=== PATIENT | male | born 1975 | race Caucasian/White ===

== ENCOUNTER 2018-04-14 13:04 | Inpatient (IN) | payer OTHER ==
--- NOTE | 2018-04-14 13:35 | UC ---
Psychiatric Complaint HPI - HPI Summary HPI Summary: The pt is a 42 y/o male presenting to [facility] c/o panic attacks since 1 week ago. The sx are aggravated by recent stressors including loss of employment , relationship breakup and a court case. He notes paranoia, hallucinations, back pain, substance use relapse and night sweats but denies SI/HI at bedside. - History Of Current Complaint Chief Complaint: EDMentalHealth Stated Complaint: MHE Time Seen by Provider: 04/14/18 13:17 Hx Obtained From: Patient Onset/Duration: Lasting Weeks - 1 week Timing: Constant Character: Anxious Aggravating Factor(s): Recent Stress Associated Signs And Symptoms: Negative - SI/HI, Paranoid Behavior Recent Stressor(s): loss of employment , relationship breakup and a court case - Allergies/Home Medications Allergies/Adverse Reactions: Allergies Allergy/AdvReac Type Severity Reaction Status Date / Time No Known Allergies Allergy Verified 04/14/18 13:12 Home Medications: Home Medications Adderall TAB* 40 mg PO BID 04/14/18 [History Confirmed 04/14/18] Hydrochlorothiazide TAB* 25 mg PO DAILY 04/14/18 [History Confirmed 04/14/18] Seroquel 100 MG * 100 mg PO DAILY 04/14/18 [History Confirmed 04/14/18] Trazodone HCl 50 mg PO DAILY 04/14/18 [History Confirmed 04/14/18] PMH/Surg Hx/FS Hx/Imm Hx Previously Healthy: No Cardiovascular History: Hypertension Psychological History: Other - ADHD, Aicha, panic attacks, ADHD, paranoid behavior, visual hallucinations - Surgical History Surgical History: None - Family History Known Family History: Positive: Unknown - Social History Occupation: Unemployed Lives: Alone Alcohol Use: Daily Substance Use Type: Cocaine, Marijuana, Prescribed Review of Systems Constitutional: Other - Positive: substance use relapse Skin: Other - Positive: night sweats Musculoskeletal: Other: - Positive: back pain Psychological: Negative - SI/HI, Anxious, Other - Positive:paranoia, hallucinations, panic attacks All Other Systems Reviewed And Are Negative: Yes Physical Exam - Summary Physical Exam Summary: Appearance: Well appearing, no pain distress Skin: warm, dry, reflects adequate perfusion Head/face: normal Eyes: EOMI, HARSHAD ENT: normal Neck: supple, non-tender Respiratory: CTA, breath sounds present Cardiovascular: RRR, pulses symmetrical Abdomen: non-tender, soft Bowel: present Musculoskeletal: normal, strength/ROM intact Neuro: normal, sensory motor intact, anxious Triage Information Reviewed: Yes Vital Signs: Initial Vital Signs Temp 98.8 F 04/14/18 13:08 Pulse 93 04/14/18 13:08 Resp 17 04/14/18 13:08 BP 138/92 04/14/18 13:08 Pulse Ox 98 04/14/18 13:08 Vital Signs Reviewed: Yes Psych Complaint Course/Dx - Course Course Of Treatment: A 42 year-old M presents to the ED with a CC of panic attacks since 1 week ago. The sx are aggravated by recent stressors including loss of employment, relationship breakup and a court case. He notes paranoia, hallucinations, back pain, substance use relapse and night sweats but denies SI/ HI. A physical exam revealed anxiety. The pt was cleared for a MHE. At 19:00, the patient is still undergoing a MHE and will be signed out to Dr. Balbir Starks MD with a final Dx of depression. Pt is agreeable with this plan. Allergies noted. - Differential Dx/Diagnosis Differential Diagnosis/HQI/PQRI: Depression Discharge - Sign-Out/Discharge Documenting (check all that apply): Sign-Out Patient Signing out patient TO: Balbir Starks - 19:00 - Discharge Plan Referrals: Ozzie Luther DO [Primary Care Provider] - - Attestation Statements Document Initiated by Scribe: Yes Documenting Scribe: Berta Castillo Provider For Whom Scribe is Documenting (Include Credential): Dr. Juan Miguel Guevara MD Scribe Attestation: Berta Fish , scribed for Dr. Juan Miguel Guevara MD on 04/14/18 at 1848.
[2018-04-14 13:47] LABS: ABS Basophils 0.1 10^3/ul (0-0.2); ABS Eosinophils 0.2 10^3/ul (0-0.6); ABS Lymphocytes 2.5 10^3/ul (1.0-4.8); ABS Monocytes 0.7 10^3/ul (0-0.8); ABS Neutrophils 6.2 10^3/ul (1.5-7.7); ABS Nucleated RBC 0 10^3/ul; Eosinophil % 1.9 % (0-6); Hematocrit 45 % (42-52); Hemoglobin 15.8 g/dl (14.0-18.0); Lymphocyte % 25.5 % (25-47); Mean Corpuscular HGB Conc 35 g/dl (31-36); Mean Corpuscular Hemoglobin 33 pg (27-31); Mean Corpuscular Volume 93 fL (80-94); Mean Platelet Volume 6.6 um3 (7.4-10.4); Nucleated Red Blood Cells % 0.2; Platelet Count 333 10^3/ul (150-450); Red Blood Count 4.82 10^6/ul (4.00-5.40); Red Cell Distribution Width 13 % (10.5-15); White Blood Count 9.7 10^3/ul (3.5-10.8)
[2018-04-14 14:05] LABS: EGFR Non-African American 63.9 (>60)
[2018-04-14 14:29] LABS: Urine Appearance Clear; Urine Blood 2+ (Negative); Urine Color Yellow; Urine Ketones Negative (Negative); Urine Protein Negative (Negative); Urine Red Blood Cell 2+(6-10/hpf) (Absent); Urine Specific Gravity 1.013 (1.010-1.030); Urine Urobilinogen Negative (Negative); Urine White Blood Cell Trace(0-5/hpf) (Absent)
[2018-04-14] MEDS ORDERED: Nicotine Inhaler* 10 MG AMP INH ONE (17:46)
[2018-04-14] MEDS ORDERED: Mouth Piece, Nicotine* 1 EACH CARTRIDGE INH PRN (17:46)
--- NOTE | 2018-04-14 18:48 | ED ---
Psychiatric Complaint - HPI Summary HPI Summary: The pt is a 42 y/o male [facility] c/o panic attacks since 1 week ago. The sx are aggravated by recent stressors including loss of employment, relationship breakup and a court case. He notes paranoia, hallucinations, back pain, substance use relapse and night sweats but denies SI/HI at bedside. - History Of Current Complaint Chief Complaint: EDMentalHealth Time Seen by Provider: 04/14/18 13:17 Hx Obtained From: Patient Onset/Duration: Lasting Weeks - 1 week Timing: Constant Character: Anxious Associated Signs And Symptoms: Positive: Negative - SI/HI, Paranoid Behavior Recent Stressor(s): loss of employment , relationship breakup and a court case - Allergies/Home Medications Allergies/Adverse Reactions: Allergies Allergy/AdvReac Type Severity Reaction Status Date / Time No Known Allergies Allergy Verified 04/14/18 13:12 Home Medications: Home Medications Adderall TAB* 40 mg PO BID 04/14/18 [History Confirmed 04/14/18] Hydrochlorothiazide TAB* 25 mg PO DAILY 04/14/18 [History Confirmed 04/14/18] Seroquel 100 MG * 100 mg PO DAILY 04/14/18 [History Confirmed 04/14/18] Trazodone HCl 50 mg PO DAILY 04/14/18 [History Confirmed 04/14/18] PMH/Surg Hx/FS Hx/Imm Hx Previously Healthy: No Sensory History: Denies: Hx Deafness Opthamlomology History: Denies: Hx Legally Blind Psychiatric History: Reports: Other Psychiatric Issues/Disorders - ADHD, Aicha, panic attacks, ADHD, paranoid behavior, visual hallucinations Denies: Hx Eating Disorder, Hx of Violent Episodes Against Others - Cancer History Cancer Type, Location and Year: None - Surgical History Surgery Procedure, Year, and Place: None Infectious Disease History: No Infectious Disease History: Denies: Traveled Outside the [place] in Last 30 Days - Family History Known Family History: Positive: Unknown - Social History Occupation: Unemployed Lives: Alone Alcohol Use: Daily Alcohol Amount: for 3 days, hx alcohol abuse, has been weaning off Substance Use Type: Reports: Cocaine, Marijuana, Prescribed Substance Use Comment - Amount & Last Used: weed daily, prescribed 9 months, cocaine a few weeks ago Smoking Status (MU): Current Every Day Smoker Review of Systems Constitutional: Other - Positive: substance use relapse Positive: Other - Positive: night sweats Psychological: Other - Negative: SI/HI Positive: Anxious, Depressed, Other - panic attacks,paranoid behavior, visual hallucinations All Other Systems Reviewed And Are Negative: Yes Physical Exam - Summary Physical Exam Summary: Appearance: Well appearing, no pain distress Skin: warm, dry, reflects adequate perfusion Head/face: normal Eyes: EOMI, HARSHAD ENT: normal Neck: supple, non-tender Respiratory: CTA, breath sounds present Cardiovascular: RRR, pulses symmetrical Abdomen: non-tender, soft Bowel: present Musculoskeletal: normal, strength/ROM intact Neuro: normal, sensory motor intact, anxious Triage Information Reviewed: Yes Vital Signs On Initial Exam: Initial Vitals Temp Pulse Resp BP Pulse Ox 98.8 F 93 17 138/92 98 04/14/18 13:08 04/14/18 13:08 04/14/18 13:08 04/14/18 13:08 04/14/18 13:08 Vital Signs Reviewed: Yes Diagnostics - Vital Signs Vital Signs Temp Pulse Resp BP Pulse Ox 04/14/18 13:08 98.8 F 93 17 138/92 98 - Laboratory Lab Results: Lab Results 04/14/18 04/14/18 04/14/18 Range/Units 13:35 13:35 13:35 WBC 9.7 (3.5-10.8) 10^3/ul RBC 4.82 (4.00-5.40) 10^6/ul Hgb 15.8 (14.0-18.0) g/dl Hct 45 (42-52) % MCV 93 (80-94) fL MCH 33 H (27-31) pg MCHC 35 (31-36) g/dl RDW 13 (10.5-15) % Plt Count 333 (150-450) 10^3/ul MPV 6.6 L (7.4-10.4) um3 Neut % (Auto) 64.4 (38-83) % Lymph % (Auto) 25.5 (25-47) % Wilcox % (Auto) 7.4 H (0-7) % Eos % (Auto) 1.9 (0-6) % Baso % (Auto) 0.8 (0-2) % Absolute Neuts (auto) 6.2 (1.5-7.7) 10^3/ul Absolute Lymphs (auto) 2.5 (1.0-4.8) 10^3/ul Absolute Monos (auto) 0.7 (0-0.8) 10^3/ul Absolute Eos (auto) 0.2 (0-0.6) 10^3/ul Absolute Basos (auto) 0.1 (0-0.2) 10^3/ul Absolute Nucleated RBC 0 10^3/ul Nucleated RBC % 0.2 Sodium 137 (135-145) mmol/L Potassium 3.7 (3.5-5.0) mmol/L Chloride 103 (101-111) mmol/L Carbon Dioxide 28 (22-32) mmol/L Anion Gap 6 (2-11) mmol/L BUN 15 (6-24) mg/dL Creatinine 1.24 H (0.67-1.17) mg/dL Est GFR ( Amer) 77.4 (>60) Est GFR (Non-Af Amer) 63.9 (>60) BUN/Creatinine Ratio 12.1 (8-20) Glucose 111 H (70-100) mg/dL Calcium 9.8 (8.6-10.3) mg/dL Total Bilirubin 0.90 (0.2-1.0) mg/dL AST 28 (13-39) U/L ALT 29 (7-52) U/L Alkaline Phosphatase 52 (34-104) U/L Total Protein 7.2 (6.4-8.9) g/dL Albumin 4.2 (3.2-5.2) g/dL Globulin 3.0 (2-4) g/dL Albumin/Globulin Ratio 1.4 (1-3) TSH 1.21 (0.34-5.60) mcIU/mL Urine Color Urine Appearance Urine pH (5-9) Ur Specific [place] (1.010-1.030) Urine Protein (Negative) Urine Ketones (Negative) Urine Blood (Negative) Urine Nitrate (Negative) Urine Bilirubin (Negative) Urine Urobilinogen (Negative) Ur Leukocyte Esterase (Negative) Urine WBC (Auto) (Absent) Urine RBC (Auto) (Absent) Ur Squamous Epith Cells (Absent) Urine Bacteria (Absent) Urine Glucose (Negative) Salicylates < 2.50 (<30) mg/dL Urine Opiates Screen None detected (None Detect) Acetaminophen < 15 mcg/mL Ur Barbiturates Screen None detected (None Detect) Ur Phencyclidine Scrn None detected (None Detect) Ur Amphetamines Screen Presumptive positive A (None Detect) U Benzodiazepines Scrn None detected (None Detect) Urine Cocaine Screen None detected (None Detect) U Cannabinoids Screen None detected (None Detect) Serum Alcohol < 10 (<10) mg/dL 04/14/18 Range/Units 14:16 WBC (3.5-10.8) 10^3/ul RBC (4.00-5.40) 10^6/ul Hgb (14.0-18.0) g/dl Hct (42-52) % MCV (80-94) fL MCH (27-31) pg MCHC (31-36) g/dl RDW (10.5-15) % Plt Count (150-450) 10^3/ul MPV (7.4-10.4) um3 Neut % (Auto) (38-83) % Lymph % (Auto) (25-47) % Wilcox % (Auto) (0-7) % Eos % (Auto) (0-6) % Baso % (Auto) (0-2) % Absolute Neuts (auto) (1.5-7.7) 10^3/ul Absolute Lymphs (auto) (1.0-4.8) 10^3/ul Absolute Monos (auto) (0-0.8) 10^3/ul Absolute Eos (auto) (0-0.6) 10^3/ul Absolute Basos (auto) (0-0.2) 10^3/ul Absolute Nucleated RBC 10^3/ul Nucleated RBC % Sodium (135-145) mmol/L Potassium (3.5-5.0) mmol/L Chloride (101-111) mmol/L Carbon Dioxide (22-32) mmol/L Anion Gap (2-11) mmol/L BUN (6-24) mg/dL Creatinine (0.67-1.17) mg/dL Est GFR ( Amer) (>60) Est GFR (Non-Af Amer) (>60) BUN/Creatinine Ratio (8-20) Glucose (70-100) mg/dL Calcium (8.6-10.3) mg/dL Total Bilirubin (0.2-1.0) mg/dL AST (13-39) U/L ALT (7-52) U/L Alkaline Phosphatase (34-104) U/L Total Protein (6.4-8.9) g/dL Albumin (3.2-5.2) g/dL Globulin (2-4) g/dL Albumin/Globulin Ratio (1-3) TSH (0.34-5.60) mcIU/mL Urine Color Yellow Urine Appearance Clear Urine pH 6.0 (5-9) Ur Specific [place] 1.013 (1.010-1.030) Urine Protein Negative (Negative) Urine Ketones Negative (Negative) Urine Blood 2+ A (Negative) Urine Nitrate Negative (Negative) Urine Bilirubin Negative (Negative) Urine Urobilinogen Negative (Negative) Ur Leukocyte Esterase Negative (Negative) Urine WBC (Auto) Trace(0-5/hpf) (Absent) Urine RBC (Auto) 2+(6-10/hpf) A (Absent) Ur Squamous Epith Cells Present A (Absent) Urine Bacteria Absent (Absent) Urine Glucose Negative (Negative) Salicylates (<30) mg/dL Urine Opiates Screen (None Detect) Acetaminophen mcg/mL Ur Barbiturates Screen (None Detect) Ur Phencyclidine Scrn (None Detect) Ur Amphetamines Screen (None Detect) U Benzodiazepines Scrn (None Detect) Urine Cocaine Screen (None Detect) U Cannabinoids Screen (None Detect) Serum Alcohol (<10) mg/dL Result Diagrams: 04/14/18 13:35 04/14/18 13:35 Lab Statement: Any lab studies that have been ordered have been reviewed, and results considered in the medical decision making process. Course/Dx - Course Course Of Treatment: A 42 year-old M presents to the ED with a CC of panic attacks since 1 week ago. The sx are aggravated by recent stressors including loss of employment, relationship breakup and a court case. He notes paranoia, hallucinations, back pain, substance use relapse and night sweats but denies SI/ HI. A physical exam revealed anxiety. The pt was cleared for a MHE. The pt will be admitted to Dr. Maria Elena Teran MD with a final Dx of depression. Pt is agreeable with this plan. Allergies noted. - Differential Dx/Clinical Impression Differential Diagnosis/HQI/PQRI: Positive: Depression Discharge - Sign-Out/Discharge Documenting (check all that apply): Patient Departure - Admit - Discharge Plan Condition: Stable Disposition: ADMITTED TO [facility] Referrals: Ozzie Luther, [Primary Care Provider] - - Attestation Statements Document Initiated by Scribe: Yes Documenting Scribe: Berta Castillo Provider For Whom Scribe is Documenting (Include Credential): Dr. Juan Miguel Guevara MD Scribe Attestation: Berta Fish , scribed for Dr. Juan Miguel Guevara MD on 04/14/18 at 1859.
[2018-04-14] MEDS ORDERED: Al Hydrox/Mg Hydrox/Simet LIQ* 30 ML UDC PO PRN (22:28)
[2018-04-14] MEDS: Acetaminophen TAB* 325 MG PO PRN (22:40)
[2018-04-14] MEDS: QUEtiapine TAB* 100 MG PO SCH (22:40)
[2018-04-14] MEDS: traZODone TAB* 50 MG TAB PO SCH (22:41)
[2018-04-14] MEDS ORDERED: Mouth Piece, Nicotine* 1 EACH CARTRIDGE INH ONE (23:00)
[2018-04-15] MEDS: Acetaminophen TAB* 325 MG PO PRN ×2 (06:21→21:13)
[2018-04-15] MEDS: Vitamin THERAPEUTIC TAB PO SCH (09:13)
[2018-04-15] MEDS: Nicotine Inhaler* 10 MG AMP INH PRN ×2 (09:13→18:22)
[2018-04-15] MEDS ORDERED: Naltrexone INJ 380 MG IM ONE (17:46)
[2018-04-15] MEDS: Nicotine GUM* 2 MG PO PRN (18:22)
[2018-04-15] MEDS: Divalproex DR TAB(*) 500 MG PO SCH (19:19)
[2018-04-15] MEDS: traZODone TAB* 50 MG TAB PO SCH (21:13)
[2018-04-15] MEDS: QUEtiapine TAB* 100 MG PO SCH (21:14)
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
[2018-04-16] MEDS ORDERED: hydrOXYzine HCL TAB* 25 MG ONE (05:15)
[2018-04-16] MEDS: Vitamin THERAPEUTIC TAB PO SCH (08:21)
[2018-04-16] MEDS: Divalproex DR TAB(*) 500 MG PO SCH (08:21)
[2018-04-16] MEDS: Nicotine Inhaler* 10 MG AMP INH PRN ×4 (09:30→18:36)
[2018-04-16] MEDS: Nicotine GUM* 2 MG PO PRN ×3 (13:36→18:37)
[2018-04-16] MEDS: hydrOXYzine HCL TAB* 25 MG PO PRN (15:52)
--- NOTE | 2018-04-16 19:07 | PN ---
Subjective - Subjective Date of Service: 04/16/18 Service Type: 48007 Hosp care 15 min low complexity Subjective: Latosha has been anxious and restless all day today. Taking meds( Depakote ) and asking for anti-anxiety meds. Hydroxyzine prescribes. Denies SI, HI hallucinations or delusions. Mood symptoms improved. Objective - Appearance Appearance: Well Developed/Nourished Dysmorphic Features: No Hygiene: Normal Grooming: Fairly Well Kept - Behavior Psychomotor Activities: Normal Exhibits Abnormal Movement: No - Attitude and Relatedness Attitude and Relatedness: Appropriate Eye Contact: Good - Speech Quality: Unpressured Latencies: Normal Quantity: Appropriate - Mood Patient's Decription of Mood: "Anxious" - Affect Observed Affect: Fair Affect Consistent with: Dysphoria - Thought Process Patient's Thought Process: Coherent, Goal Directed Thought Content: No Passive Wish, No Suicidal Planning, No Homicidal Ideation, No Paranoid Ideation - Sensorium Experiencing Hallucinations: No, Sensorium is Clear Type of Hallucinations: Visual: No, Auditory: No, Command: No - Level of Consciousness Level of Consciousness: Alert Orientation: Yes Intact, Yes Orientated to Time, Yes Orientated to Place, Yes Orientated to Person - Impulse Control Impulse Control: Intact - Insight and Judgement Insight and Judgement: Poor - Group Participation Particating in Group Activities: No - Medication Management Medication Management Adherence: Yes Assessment - Assessment Merits Inpatient Hospitalization: For Immediate Safety, For Stabilization, For Ongoing Evaluation, Pending Safe DC Plan Clinical Impression: Still symptomatic and will need time for stabilization. Plan - Plan Treatment Plan: Name: LATOSHA THOMAS Birthdate: 1975 [id number] Continued Medication Management: Continue Outpt Medication Medications: Current Medications Acetaminophen (Tylenol Tab*) 650 mg PO Q4H PRN PRN Reason: PAIN or TEMP > 101 F Last Admin: 04/15/18 21:13 Dose: 650 mg Al Hydrox/Mg Hydrox/Simethicone (Maalox Plus*) 30 ml PO Q4H PRN PRN Reason: INDIGESTION Divalproex Sodium (Depakote Dr Tab(*)) 500 mg PO DAILY [facility] Last Admin: 04/16/18 08:21 Dose: 500 mg Hydroxyzine HCl (Atarax Tab*) 25 mg PO Q4H PRN PRN Reason: ANXIETY Last Admin: 04/16/18 15:52 Dose: 25 mg Multivitamins (Theragran Tab*) 1 tab PO DAILY [place] Last Admin: 04/16/18 08:21 Dose: 1 tab Nicotine (Nicotine Inhaler*) 10 mg INH Q2H PRN PRN Reason: CRAVING Last Admin: 04/16/18 18:36 Dose: 10 mg Nicotine Polacrilex (Nicotine Gum*) 2 mg PO Q2H PRN PRN Reason: CRAVING Last Admin: 04/16/18 18:37 Dose: 2 mg Quetiapine Fumarate (Seroquel Tab*) 100 mg PO BEDTIME [facility] Last Admin: 04/15/18 21:14 Dose: 100 mg Trazodone HCl (Desyrel Tab*) 50 mg PO BEDTIME [place] Last Admin: 04/15/18 21:13 Dose: 50 mg - Discharge Plan Discharge Plan: Drug/Alcohol Rehab
[2018-04-16] MEDS: QUEtiapine TAB* 100 MG PO SCH (20:42)
[2018-04-16] MEDS: traZODone TAB* 50 MG TAB PO SCH (20:42)
[2018-04-17] MEDS: Nicotine Inhaler* 10 MG AMP INH PRN ×5 (07:39→21:18)
[2018-04-17] MEDS: Acetaminophen TAB* 325 MG PO PRN ×3 (07:39→22:16)
[2018-04-17] MEDS: Nicotine GUM* 2 MG PO PRN ×2 (07:41→10:01)
[2018-04-17] MEDS: Divalproex DR TAB(*) 500 MG PO SCH (08:06)
[2018-04-17] MEDS: Vitamin THERAPEUTIC TAB PO SCH (08:06)
[2018-04-17] MEDS: hydrOXYzine HCL TAB* 25 MG PO PRN ×2 (11:13→19:12)
[2018-04-17] MEDS: Nicotine PATCH 21 MG/24 HR* PATCH TRANSDERM SCH (13:23)
[2018-04-17] MEDS ORDERED: QUEtiapine TAB* 25 MG PO PRN (15:40)
[2018-04-17] MEDS ORDERED: Divalproex DR TAB(*) 250 MG PO ONE (15:43)
--- NOTE | 2018-04-17 15:48 | PN ---
Subjective - Subjective Date of Service: 04/17/18 Service Type: 18164 Hosp care 25 min moderate complexity Subjective: Patient was seen by self, discussed with treatment team, met with his parents as per his consent, chart was reviewed. Patient has been compliant with his medications, no reported side effects. Patient reports his ongoing struggle with his ongoing irritability/anger, continues to be easily distractible, disorganized in his thoughts and behaviors, disturbance in sleeping, anxious. Patient eating has been fair. Patient has been cooperative with staff. Patient behavior has been in control. Patient mood was very anxious and dysphoric with racing thoughts. Patient has been reporting no suicidal or homicidal ideation. No psychotic symptoms of delusions or hallucinations at this time but patient did report having hallucinations and delusions before coming to the hospital. But patient was reportedly abusing stimulant and alcohol. Objective - Appearance Appearance: Healthy Appearing Dysmorphic Features: No Hygiene: Normal Grooming: Fairly Well Kept - Behavior Psychomotor Activities: Abnormal-Increased Exhibits Abnormal Movement: No - Attitude and Relatedness Attitude and Relatedness: Cooperative Eye Contact: Fair - Speech Quality: Unpressured Latencies: Long - Mood Patient's Decription of Mood: "Anxious" - Affect Observed Affect: Tense Affect Consistent with: Dysphoria - anxious - Thought Process Patient's Thought Process: Goal Directed, Disorganized - mostly Thought Content: No Passive Wish, No Suicidal Planning, No Homicidal Ideation, No Paranoid Ideation - Sensorium Experiencing Hallucinations: No, Sensorium is Clear Type of Hallucinations: Visual: No, Auditory: No, Command: No - Level of Consciousness Level of Consciousness: Alert Orientation: Yes Intact, Yes Orientated to Time, Yes Orientated to Place, Yes Orientated to Person - Impulse Control Impulse Control: Intact - Insight and Judgement Insight and Judgement: Fair - Group Participation Particating in Group Activities: Yes - Medication Management Medication Management Adherence: Yes Assessment - Assessment Merits Inpatient Hospitalization: For Immediate Safety, For Stabilization, For Discharge Planning Inpatient DSM-V Dx: F39 Clinical Impression: This 42-year-old male with no prior history of hospitalization and possibly a misdiagnosis of ADHD and treatment with stimulants by primary care physician. His symptoms of psychosis appears to have a relationship with stimulant and almost disappeared after holding the medication overnight. He also has an extensive history of alcohol and opiate dependance and the alcohol dependence is current. Plan - Plan Treatment Plan: Name: LATOSHA THOMAS Birthdate: 1975 [id number] - Patient continues to be hospitalized due to recent psychotic symptoms, stimulant and alcohol abuse and mood instability. - Patient's medications were adjusted after informed consent with discontinuation of Seroquel, increment in Depakote to 750 mg BID to help with mood stability, Clonidine was started to help with ADHD related symptoms and Klonopin 0.5 mg BID was started to help with anxiety and alcohol related withdrawal symptoms.. - Patient will be monitored for improvement and side effects. Risk and benefits were discussed. - Patient was encouraged to continue his participation in the milieu, group and individual therapy. Medications: Current Medications Acetaminophen (Tylenol Tab*) 650 mg PO Q4H PRN PRN Reason: PAIN or TEMP > 101 F Last Admin: 04/17/18 13:22 Dose: 650 mg Al Hydrox/Mg Hydrox/Simethicone (Maalox Plus*) 30 ml PO Q4H PRN PRN Reason: INDIGESTION Clonidine HCl (Catapres Tab*) 0.1 mg PO BID COUNTS INCLUDE 234 BEDS AT THE [facility] Divalproex Sodium (Depakote Dr Tab(*)) 750 mg PO BID [place] Divalproex Sodium (Depakote Dr Tab(*)) 250 mg PO ONCE ONE Stop: 04/17/18 15:44 Hydroxyzine HCl (Atarax Tab*) 25 mg PO Q4H PRN PRN Reason: ANXIETY Last Admin: 04/17/18 11:13 Dose: 25 mg Multivitamins (Theragran Tab*) 1 tab PO DAILY COUNTS INCLUDE 234 BEDS AT THE [facility] Last Admin: 04/17/18 08:06 Dose: 1 tab Nicotine (Nicotine Inhaler*) 10 mg INH Q2H PRN PRN Reason: CRAVING Last Admin: 04/17/18 13:23 Dose: 10 mg Nicotine (Nicotine Patch 21 Mg/24 Hr*) 1 patch TRANSDERM DAILY COUNTS INCLUDE 234 BEDS AT THE [facility] Last Admin: 04/17/18 13:23 Dose: 1 patch Pharmacy Profile Note (Nicotine Patch Removal Note*) 1 note FOLLOW UP 2100 COUNTS INCLUDE 234 BEDS AT THE [facility] Quetiapine Fumarate (Seroquel Tab*) 50 mg PO BEDTIME PRN PRN Reason: AGITATION/INSOMNIA
[2018-04-17] MEDS: cloNIDine TAB* 0.1 MG PO SCH ×2 (16:16→21:14)
[2018-04-17] MEDS: clonazePAM TAB(*) 0.5 MG PO SCH ×2 (16:16→21:14)
[2018-04-17] MEDS ORDERED: Nicotine Patch Removal NOTE FOLLOW UP SCH (21:00)
[2018-04-17] MEDS: Divalproex DR TAB(*) 250 MG PO SCH (21:15)
[2018-04-17] MEDS ORDERED: cloNIDine TAB* 0.1 MG ONE (21:18)
[2018-04-18] MEDS: Acetaminophen TAB* 325 MG PO PRN (06:46)
[2018-04-18] MEDS: Nicotine Inhaler* 10 MG AMP INH PRN ×4 (06:48→18:53)
[2018-04-18] MEDS: Nicotine PATCH 21 MG/24 HR* PATCH TRANSDERM SCH (08:11)
[2018-04-18] MEDS: Divalproex DR TAB(*) 250 MG PO SCH ×2 (08:15→20:10)
[2018-04-18] MEDS: clonazePAM TAB(*) 0.5 MG PO SCH ×2 (08:15→20:10)
[2018-04-18] MEDS: cloNIDine TAB* 0.1 MG PO SCH ×2 (08:15→20:10)
[2018-04-18] MEDS: Vitamin THERAPEUTIC TAB PO SCH (08:15)
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
--- NOTE | 2018-04-18 12:08 | PN ---
[facility]: Group Therapy Note - Service Type Service Type: 31555 Group Psychotherapy - Cognitive Behavioral Group Therapy ( CBT):Patient was attentive and participatory in CBT programming this morning, and remained in good behavioral control. Patient expressed positive insights regarding relevant treatment interventions and goals.
[2018-04-18] MEDS: hydrOXYzine HCL TAB* 25 MG PO PRN ×2 (12:21→18:47)
[2018-04-18] MEDS: Ibuprofen TAB* 400 MG PO PRN (13:04)
[2018-04-18] MEDS: Nicotine GUM* 2 MG PO PRN ×3 (13:04→18:47)
--- NOTE | 2018-04-18 16:02 | PN ---
[facility]: Group Therapy Note - Service Type Service Type: 03168 Group Psychotherapy - Medication Education Group: Patient was attentive and participatory in group, and remained in good behavioral control. Patient expressed positive insights regarding relevant treatment interventions. Patient stated understanding of material discussed and had appropriate questions.
[2018-04-19] MEDS: cloNIDine TAB* 0.1 MG PO SCH ×2 (08:26→20:15)
[2018-04-19] MEDS: Divalproex DR TAB(*) 250 MG PO SCH ×2 (08:26→20:15)
[2018-04-19] MEDS: Vitamin THERAPEUTIC TAB PO SCH (08:26)
[2018-04-19] MEDS: Nicotine Inhaler* 10 MG AMP INH PRN ×2 (08:27→12:48)
[2018-04-19] MEDS: Nicotine GUM* 2 MG PO PRN ×4 (08:28→17:51)
[2018-04-19] MEDS ORDERED: clonazePAM TAB(*) 0.5 MG PO SCH (09:00)
[2018-04-19] MEDS: Acetaminophen TAB* 325 MG PO PRN (12:46)
--- NOTE | 2018-04-19 12:46 | PN ---
Subjective - Subjective Date of Service: 04/19/18 Service Type: 03192 Hosp care 15 min low complexity Subjective: Patient was seen by self, discussed with treatment team, chart was reviewed. Patient has been compliant with his medications, no reported side effects. Patient reports feeling better with his mood, more organized in his thoughts and behaviors, improvement in sleep, reduction in racing thoughts, anxiety improving. Patient eating has been fair. Patient has been cooperative with staff. Patient behavior has been in control. Patient has been reporting no suicidal or homicidal ideation. No psychotic symptoms of delusions or hallucinations. Patient understand his struggle with substance and alcohol, is at high risk of relapse, willing to follow up with drug / alcohol treatment program. Patient already received Vivitrol during this hospitalization and is willing to continue with it outpatient. Objective - Appearance Appearance: Healthy Appearing Dysmorphic Features: No Hygiene: Normal Grooming: Fairly Well Kept - Behavior Psychomotor Activities: Normal Exhibits Abnormal Movement: No - Attitude and Relatedness Attitude and Relatedness: Cooperative - more Eye Contact: Fair - Speech Quality: Unpressured Latencies: Normal Quantity: Appropriate - Mood Patient's Decription of Mood: "Okay" - Affect Observed Affect: Constricted Affect Consistent with: Dysphoria - Thought Process Thought Content: No Passive Wish, No Suicidal Planning, No Homicidal Ideation, No Paranoid Ideation - Sensorium Experiencing Hallucinations: No, Sensorium is Clear Type of Hallucinations: Visual: No, Auditory: No, Command: No - Level of Consciousness Level of Consciousness: Alert Orientation: Yes Intact, Yes Orientated to Time, Yes Orientated to Place, Yes Orientated to Person - Impulse Control Impulse Control: Intact - Insight and Judgement Insight and Judgement: Fair - Group Participation Particating in Group Activities: Yes - Medication Management Medication Management Adherence: Yes Assessment - Assessment Merits Inpatient Hospitalization: For Immediate Safety, For Stabilization, For Discharge Planning Inpatient DSM-V Dx: F39 Clinical Impression: This 42-year-old male with no prior history of hospitalization and possibly a misdiagnosis of ADHD and treatment with stimulants by primary care physician. His symptoms of psychosis appears to have a relationship with stimulant and almost disappeared after holding the medication overnight. He also has an extensive history of alcohol and opiate dependance and the alcohol dependence is current. Plan - Plan Treatment Plan: Name: LATOSHA THOMAS Birthdate: 1975 [id number] - Patient continues to be hospitalized due to recent psychotic symptoms, stimulant and alcohol abuse and mood instability. - Patient's medications were adjusted after informed consent with continuation of Depakote to 750 mg BID to help with mood stability, Clonidine 0.1 mg BID was continued to help with with ADD and HTN and Klonopin will be discontinued today. - Patient will be monitored for improvement and side effects. Risk and benefits were discussed. - Patient was encouraged to continue his participation in the milieu, group and individual therapy. Medications: Current Medications Acetaminophen (Tylenol Tab*) 650 mg PO Q4H PRN PRN Reason: PAIN or TEMP > 101 F Last Admin: 04/18/18 06:46 Dose: 650 mg Al Hydrox/Mg Hydrox/Simethicone (Maalox Plus*) 30 ml PO Q4H PRN PRN Reason: INDIGESTION Clonidine HCl (Catapres Tab*) 0.1 mg PO BID [facility] Last Admin: 04/19/18 08:26 Dose: 0.1 mg Divalproex Sodium (Depakote Dr Tab(*)) 750 mg PO BID [facility] Last Admin: 04/19/18 08:26 Dose: 750 mg Hydroxyzine HCl (Atarax Tab*) 25 mg PO Q4H PRN PRN Reason: ANXIETY Last Admin: 04/18/18 18:47 Dose: 25 mg Ibuprofen (Motrin Tab*) 400 mg PO Q6H PRN PRN Reason: PAIN Last Admin: 04/18/18 13:04 Dose: 400 mg Multivitamins (Theragran Tab*) 1 tab PO DAILY [facility] Last Admin: 04/19/18 08:26 Dose: 1 tab Nicotine (Nicotine Inhaler*) 10 mg INH Q2H PRN PRN Reason: CRAVING Last Admin: 04/19/18 08:27 Dose: 10 mg Nicotine Polacrilex (Nicotine Gum*) 2 mg PO Q2H PRN PRN Reason: . Last Admin: 04/19/18 08:28 Dose: 2 mg
[2018-04-19] MEDS: Ibuprofen TAB* 400 MG PO PRN (12:47)
[2018-04-19] MEDS: hydrOXYzine HCL TAB* 25 MG PO PRN (17:51)
[2018-04-20] MEDS: Ibuprofen TAB* 400 MG PO PRN (06:06)
[2018-04-20] MEDS: Acetaminophen TAB* 325 MG PO PRN (06:06)
[2018-04-20] MEDS: Vitamin THERAPEUTIC TAB PO SCH (07:50)
[2018-04-20] MEDS: Divalproex DR TAB(*) 250 MG PO SCH (07:50)
[2018-04-20] MEDS: Nicotine Inhaler* 10 MG AMP INH PRN (07:51)
[2018-04-20] MEDS: Nicotine GUM* 2 MG PO PRN (07:51)
[2018-04-20] MEDS: cloNIDine TAB* 0.1 MG PO SCH (07:51)
[2018-04-20 07:57] VITALS: BP 135/98
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
== END 2018-04-20 14:00 | disposition home or self-care (01) | DRG 753 ==
LOC: ED 13:04 → BSU 22:10
PROVIDERS: ADMIT Psychiatry & Neurology Psychiatry; ATTEND Psychiatry & Neurology Psychiatry
PROC: GZHZZZZ Group Psychotherapy (ICD-10-PCS; principal; 2018-04-18)
DX: F39 Unspecified mood [affective] disorder (principal); I10 Essential (primary) hypertension; N28.9 Disorder of kidney and ureter, unspecified; F10.20 Alcohol dependence, uncomplicated; F90.9 Attention-deficit hyperactivity disorder, unspecified type; F17.200 Nicotine dependence, unspecified, uncomplicated; F41.9 Anxiety disorder, unspecified; Z73.3 Stress, not elsewhere classified; Z63.8 Other specified problems related to primary support group; Z91.030 Bee allergy status; Z81.1 Family history of alcohol abuse and dependence; Z81.8 Family history of other mental and behavioral disorders; Z87.820 Personal history of traumatic brain injury; Z56.0 Unemployment, unspecified
CPT/HCPCS: 36415; 80053; 80164; 80307; 80320; 80329; 81003; 81015; 84443; 85025; 87086; 90853; 99222; 99231; 99232; 99238; 99285; A9270-GY; G0480; J2315